=== PATIENT | male | born 2000 | race Hispanic/Latino ===

== ENCOUNTER 2023-08-12 22:10 | Emergency (ER) | payer SELFPAY ==
[2023-08-12] MEDS ORDERED: Ibuprofen 800 MG TAB ONE (22:52)
== END 2023-08-12 22:57 | disposition home or self-care (01) ==
LOC: NAV ERS 22:10
DX: S39.012A Strain of muscle, fascia and tendon of lower back, initial encounter (principal); F17.210 Nicotine dependence, cigarettes, uncomplicated; X50.0XXA Overexertion from strenuous movement or load, initial encounter
CPT/HCPCS: 99283